=== PATIENT | female | born 1980 | race Two or more races ===

== ENCOUNTER 2021-08-23 13:31 | Outpatient (CLI) | payer OTHER | END 2021-08-23 13:35 | disposition home or self-care (01) | LOC: RAD 13:31 | PROVIDERS: ATTEND Family Medicine | DX: M54.59 Other low back pain (principal) ==

== ENCOUNTER 2021-08-26 21:29 | Emergency (ER) | payer OTHER ==
[~2021-08-26] VITALS: Ht 172.7 cm; Wt 77.1 kg
[2021-08-26] MEDS ORDERED: IBU800 MG (22:17)
[2021-08-26] MEDS ORDERED: DICLOFENAC 50 MG (22:18)
[2021-08-26] MEDS ORDERED: CLINDAMYCIN 150 MG (22:19)
[2021-08-26] MEDS ORDERED: NORFLEX100MG (22:20)
== END 2021-08-26 22:40 | disposition home or self-care (01) ==
LOC: ER 21:29
DX: K08.89 Other specified disorders of teeth and supporting structures (principal)

== ENCOUNTER 2021-09-23 13:19 | Outpatient (CLI) | payer OTHER ==
[~2021-09-23 13:19] MED LIST: CLINDAMYCIN 150 MG; DICLOFENAC 50 MG; IBU800 MG; NORFLEX100MG
== END 2021-09-23 13:26 | disposition home or self-care (01) ==
LOC: TOM 13:19
PROVIDERS: ATTEND Family Medicine
DX: G44.89 Other headache syndrome (principal)

== ENCOUNTER 2022-01-06 12:12 | Outpatient (CLI) | payer OTHER | END 2022-01-06 12:22 | disposition home or self-care (01) | LOC: RAD 12:12 | PROVIDERS: ATTEND Family Medicine | DX: M25.551 Pain in right hip (principal); M25.552 Pain in left hip ==

== ENCOUNTER 2022-01-18 10:56 | Outpatient (CLI) | payer OTHER | END 2022-01-18 11:00 | disposition home or self-care (01) | LOC: RAD 10:56 | PROVIDERS: ATTEND Family Medicine | DX: J20.9 Acute bronchitis, unspecified (principal) ==